=== PATIENT | female | born 1990 ===

== ENCOUNTER 2017-03-30 18:43 | Emergency (ER) | payer SELFPAY ==
[2017-03-30 19:03] VITALS: TEMP 98.2; O2SAT 98
--- NOTE | 2017-03-30 19:45 | C.PDOC ---
History Of Present Illness 26 year old female presents to the ED with complaints of dysuria, suprapubic pain, increased frequency, and urgency of urination for four days. Patient notes LMP was on 03/05/2017 and denies back pain, hematuria, vaginal bleeding, or discharge. Time Seen by Provider: 03/30/17 19:23 Chief Complaint (Nursing): Female Genitourinary History Per: Patient History/Exam Limitations: no limitations Onset/Duration Of Symptoms: Days (4 days ) Current Symptoms Are (Timing): Still Present Quality Of Discomfort: "Pain" Associated Symptoms: Urinary Symptoms. denies: Fever, Chills, Nausea, Vomiting Alleviating Factors: None Recent travel outside of the [place]: No Abnormal Vaginal Bleeding: No Last Menstral Period: 03/05/2017 Past Medical History Reviewed: Historical Data, Nursing Documentation, Vital Signs Vital Signs: Last Vital Signs Temp 98.2 F 03/30/17 19:02 Pulse 74 03/30/17 19:02 Resp 20 03/30/17 19:02 BP 102/69 03/30/17 19:02 Pulse Ox 98 03/30/17 20:09 - Medical History PMH: Bipolar Disorder, Depression, Diverticulitis, Gastritis, Hypercholesterolemia, Hypothyroidism Surgical History: Denies: Endoscopy Family History: States: Unknown Family Hx - Social History Hx Tobacco Use: No Hx Alcohol Use: No Hx Substance Use: No - Immunization History Hx Tetanus Toxoid Vaccination: No Hx Influenza Vaccination: Yes Hx Pneumococcal Vaccination: No Review Of Systems Constitutional: Negative for: Fever, Chills Cardiovascular: Negative for: Chest Pain Respiratory: Negative for: Cough, Shortness of Breath Gastrointestinal: Positive for: Abdominal Pain (suprapubic pain ). Negative for : Nausea, Vomiting Genitourinary: Positive for: Dysuria, Frequency, Other (increased urgency ). Negative for: Incontinence, Hematuria, Vaginal Discharge, Vaginal Bleeding Musculoskeletal: Negative for: Back Pain Physical Exam - Physical Exam Appears: Non-toxic, No Acute Distress Skin: Warm, Dry Head: Atraumatic Eye(s): bilateral: Normal Inspection Chest: Symmetrical, No Deformity Cardiovascular: Rhythm Regular, No Murmur Respiratory: Normal Breath Sounds, No Rales, No Rhonchi, No Wheezing Gastrointestinal/Abdominal: Soft, No Tenderness, No Distention, No Guarding, No Rebound Back: No CVA Tenderness Extremity: Normal ROM, No Tenderness Neurological/Psych: Oriented x3 ED Course And Treatment O2 Sat by Pulse Oximetry: 98 (room air ) Progress Note: Labs were ordered. Medical Decision Making Medical Decision Making: pt with urinary symptoms; ua. uc and upreg done. upreg neg, ua shows +3 le wiht 800 wbc, will tx with macrobid, first dose to be given inthe er, with d/c home and f/u in med clinic. Disposition Counseled Patient/Family Regarding: Studies Performed, Diagnosis, Need For Followup, Rx Given - Disposition Referrals: Clinic,Med Surg [Primary Care Provider] - [facility] [Outside] [facility] [Outside] Disposition: HOME/ ROUTINE Disposition Time: 20:37 Condition: STABLE Additional Instructions: Noemi ashtyn agua y jugo de arndano. [place] los antibiticos segn lo prescrito, hasta que todos terminen. Seguimiento en la clnica mdica - llame para alejandra dany. Vuelva a ER para cualquier sntoma peor, delbert fiebre, vmito o cualquier otra preocupaci Prescriptions: Nitrofurantoin Macrocrystals [Macrobid] 100 mg PO BID #14 cap Instructions: Urinary Tract Infection in Women (ED) Forms: Gen Discharge Inst Arabic, [facility] (Arabic) - Clinical Impression Clinical Impression: Urinary tract infection - PA / ASW/ASUW [employer]ER / Resident Statement MD/DO has reviewed & agrees with the documentation as recorded. - Scribe Statement The provider has reviewed the documentation as recorded by the Scribe Leanne Jefferson All medical record entries made by the Scribe were at my direction and personally dictated by me. I have reviewed the chart and agree that the record accurately reflects my personal performance of the history, physical exam, medical decision making, and the department course for this patient. I have also personally directed, reviewed, and agree with the discharge instructions and disposition.
[2017-03-30 20:31] LABS: RBC URINE 186 /hpf (0-3); URINE BACTERIA MANY (<OCC); URINE BILIRUBIN NEGATIVE (NEGATIVE); URINE BLOOD 3+ (NEGATIVE); URINE COLOR Yellow (YELLOW); URINE GLUCOSE (UA) NORMAL (Normal); URINE KETONE NEGATIVE (NEGATIVE); URINE LEUKOCYTE ESTERASE 3+ Leu/uL (Negative); URINE PROTEIN 1+ mg/dL (NEGATIVE); URINE UROBILINOGEN NORMAL mg/dL (0.2-1.0); WBC CLUMPS FEW /hpf; WBC URINE 665 /hpf (0-5)
[2017-03-30 20:52] VITALS: BP 122/72; PULSE 71; RESP 18
== END 2017-03-30 20:52 | disposition home or self-care (01) ==
LOC: C.ER 18:43 → SUPCPDRO 18:43 → C.ER 20:52
DX: N39.0 Urinary tract infection, site not specified (principal)

== ENCOUNTER 2018-05-27 07:59 | Emergency (ER) | payer OTHER ==
[2018-05-27 08:09] VITALS: BMI 28.3
[2018-05-27 08:16] VITALS: O2SAT 99
--- NOTE | 2018-05-27 08:49 | C.PDOC ---
Time Seen by Provider: 05/27/18 08:04 Chief Complaint (Nursing): Breast Problem Past Medical History Vital Signs: Last Vital Signs Temp 97.9 F 05/27/18 08:09 Pulse 71 05/27/18 08:09 Resp 18 05/27/18 08:09 BP 124/84 05/27/18 08:09 Pulse Ox 99 05/27/18 08:09 - Medical History PMH: Bipolar Disorder, Depression, Diverticulitis, Gastritis, Hypercholesterolemia, Hypothyroidism Surgical History: Denies: Endoscopy Family History: States: Unknown Family Hx - Social History Hx Tobacco Use: No Hx Alcohol Use: No Hx Substance Use: No - Immunization History Hx Tetanus Toxoid Vaccination: No Hx Influenza Vaccination: No Hx Pneumococcal Vaccination: No ED Course And Treatment O2 Sat by Pulse Oximetry: 99 Disposition - Disposition
--- NOTE | 2018-05-27 08:51 | C.PDOC ---
History Of Present Illness 27 y/o female presents to ED with c/o left breast pain for 4 days associated with warmth. Patient state she felt lump underneath left nipple and denies any nipple discharge, redness, chest pain, nausea, vomiting, abdominal pain, injury, sob or any other complaints at this time. Patient reports she was 7 weeks and had miscarriage 1 week ago. Time Seen by Provider: 05/27/18 08:04 Chief Complaint (Nursing): Breast Problem History Per: Patient History/Exam Limitations: no limitations Onset/Duration Of Symptoms: Days Current Symptoms Are (Timing): Still Present Past Medical History Reviewed: Historical Data, Nursing Documentation, Vital Signs Vital Signs: Last Vital Signs Temp 97.9 F 05/27/18 08:09 Pulse 71 05/27/18 08:09 Resp 18 05/27/18 08:09 BP 124/84 05/27/18 08:09 Pulse Ox 99 05/27/18 08:09 - Medical History PMH: Bipolar Disorder, Depression, Diverticulitis, Gastritis, Hypercholesterolemia, Hypothyroidism Surgical History: No Surg Hx Family History: States: No Known Family Hx - Social History Hx Tobacco Use: No Hx Alcohol Use: No Hx Substance Use: No - Immunization History Hx Tetanus Toxoid Vaccination: No Hx Influenza Vaccination: No Hx Pneumococcal Vaccination: No Review Of Systems Constitutional: Negative for: Fever, Chills Cardiovascular: Positive for: Other (breast pain). Negative for: Chest Pain Gastrointestinal: Negative for: Nausea, Vomiting, Abdominal Pain Skin: Negative for: Rash Physical Exam - Physical Exam Appears: Non-toxic, No Acute Distress Skin: Warm, Dry, No Rash Head: Atraumatic, Normacephalic Eye(s): bilateral: Normal Inspection Oral Mucosa: Moist Neck: Normal ROM, Supple Lymphatic: No Adenopathy, No Axilla Node Tenderness Chest: Symmetrical, No Tenderness, No Ecchymosis Cardiovascular: Rhythm Regular Respiratory: Normal Breath Sounds, No Rales, No Rhonchi, No Wheezing Gastrointestinal/Abdominal: Soft, No Tenderness, No Guarding, No Rebound Neurological/Psych: Oriented x3, Normal Speech, Normal Cognition ED Course And Treatment O2 Sat by Pulse Oximetry: 99 (RA) Pulse Ox Interpretation: Normal Medical Decision Making Medical Decision Making: test at ED +, but patient had miscarriage 1 week ago. Patient referred to [facility] for further evaluation and management which may include Mammogram. Patient agrees with plan of discharge and follow up. Disposition Counseled Patient/Family Regarding: Studies Performed, Diagnosis, Need For Followup - Disposition Referrals: [facility] at [facility] [Outside] Disposition: HOME/ ROUTINE Disposition Time: 08:45 Condition: GOOD Additional Instructions: GREGORIO BORREGO, thank you for letting us take care of you today. Your provider was Donna Sotomayor MD and you were treated for LT BREAST PAIN. The emergency medical care you received today was directed at your acute symptoms. If you were prescribed any medication, please fill it and take as directed. It may take several days for your symptoms to resolve. Return to the Emergency Department if your symptoms worsen, do not improve, or if you have any other p roblems. Please contact your doctor or call one of the physicians/clinics you have been referred to that are listed on the Patient Visit Information form that is included in your discharge packet. Bring any paperwork you were given at discharge with you along with any medications you are taking to your follow up visit. Our treatment cannot replace ongoing medical care by a primary care provider outside of the emergency department. Thank you for allowing the [facility] team to be part of your care today. Instructions: Common Breast Problems Forms: [employer] (Qatari), Gen Discharge Inst Qatari Print Language: SAMMARINESE - POA Present On Arrival: None - Clinical Impression Clinical Impression: Pain of breast - Scribe Statement The provider has reviewed the documentation as recorded by the Kiranibalicia Coley All medical record entries made by the Kiranibalicia were at my direction and personally dictated by me. I have reviewed the chart and agree that the record accurately reflects my personal performance of the history, physical exam, medical decision making, and the department course for this patient. I have also personally directed, reviewed, and agree with the discharge instructions and disposition.
[2018-05-27 09:02] VITALS: BP 115/63; PULSE 61; RESP 20; TEMP 98.3
== END 2018-05-27 09:02 | disposition home or self-care (01) ==
LOC: C.ER 07:59
DX: N64.4 Mastodynia (principal)